=== PATIENT | male | born 2000 | race Hispanic/Latino ===

== ENCOUNTER 2021-02-01 03:06 | Inpatient (IN) | payer OTHER, SELFPAY ==
[2021-02-01] MEDS ORDERED: Ondansetron PF 4 MG/2 ML Vial ONE ×2 (03:20→08:53)
[2021-02-01 03:33] LABS: Hemoglobin 14.1 g/dL (14.0-18.0); Mean Corpuscular Hemoglobin 27.2 pg (27.0-31.0); Mean Corpuscular Volume 80.1 fL (78.0-98.0); Mean Platelet Volume 9.7 fL (7.4-10.4); Platelet Count 242 thou/uL (130-400); RBC Distribution Width 12.1 % (11.5-14.5); Red Blood Cell (RBC) Count 5.19 mill/uL (4.70-6.10); White Blood Cell (WBC) Count 21.5 thou/uL (4.8-10.8)
[2021-02-01] MEDS ORDERED: Boostrix 0.5 ML (Tdap) VIAL ONE (03:45)
[2021-02-01 03:49] LABS: Acetaminophen Less than 6.0 mcg/mL (10.0-30.0); Alcohol Less than 10 mg/dL (Less than 10); Salicylate Less than 8.0 mg/dL (15.0-30.0)
[2021-02-01 03:53] LABS: ALT (SGPT) 121 U/L (8-55); AST (SGOT) 126 U/L (5-34); Albumin 4.1 g/dL (3.5-5.0); Alkaline Phosphatase 99 U/L (40-110); Anion Gap 22 mmol/L (10-20); BUN (Urea Nitrogen) 17 mg/dL (8.9-20.6); Bilirubin, Total 0.4 mg/dL (0.2-1.2); Calc. Creatinine Clearance 0 mL/min (70-130); Calcium 8.8 mg/dL (7.8-10.44); Carbon Dioxide 14 mmol/L (22-29); Chloride 105 mmol/L (98-107); Globulin 3.5 g/dL (2.4-3.5); Glucose 165 mg/dL (70-105); Protein, Total 7.6 g/dL (6.0-8.3); Sodium 137 mmol/L (136-145)
[2021-02-01 03:55] LABS: Lymphocytes 9 % (21-51); MDiff Complete? YES; Monocytes 8 % (0-10); Neutrophil 83 % (42-75); Platelet Morphology Comment Appears Adequate
[2021-02-01] MEDS ORDERED: Morphine 4 MG/ML VIAL ONE (05:14)
[2021-02-01] MEDS ORDERED: Lidocaine 1% (PF) 30 ML VIAL ONE (05:21)
[2021-02-01] MEDS ORDERED: Lorazepam 2 MG/ML VIAL ONE (06:23)
[2021-02-01] MEDS ORDERED: EPINEPHrine 1 MG/ML AMP ONE (07:04)
[2021-02-01] MEDS ORDERED: Bupivacaine PF 0.5% 30 ML VIAL ONE (07:04)
[2021-02-01] MEDS ORDERED: Thrombin 5000 UNITS/5 ML VIAL ONE (07:04)
[2021-02-01] MEDS ORDERED: Fentanyl 250 MCG/5 ML VIAL ONE (07:24)
[2021-02-01] MEDS ORDERED: Fentanyl 100 MCG/2 ML VIAL ONE ×2 (08:07→13:04)
[2021-02-01 08:29] LABS: SARS-CoV-2 NAA Rapid Test Not Detected (NotDetected)
[2021-02-01] MEDS ORDERED: Glycopyrrolate 0.2 MG/ML 5 ML SYRINGE ONE (08:53)
[2021-02-01] MEDS ORDERED: ePHEDrine Sulfate 50 MG/10 ML VIAL ONE (08:53)
[2021-02-01] MEDS ORDERED: Succinylcholine 200 MG/10 ml SYRINGE FS ONE (08:53)
[2021-02-01] MEDS ORDERED: Lidocaine 1% PF 5 ML VIAL ONE (08:53)
[2021-02-01] MEDS ORDERED: Rocuronium Bromide 10 MG/ML (10ML VIAL) ONE (08:53)
[2021-02-01] MEDS ORDERED: PROPOFOL 200 MG/20 ML VIAL ONE (08:53)
[2021-02-01] MEDS ORDERED: PHENYLEPHRINE-NS 100 MCG/ML 10 ML SYRINGE ONE ×2 (08:53→10:42)
[2021-02-01] MEDS ORDERED: Dexamethasone 20 MG/5 ML VIAL ONE (08:53)
[2021-02-01] MEDS ORDERED: Esmolol 100 MG/10 ML VIAL ONE (08:53)
[2021-02-01] MEDS ORDERED: Ondansetron HCl/PF 4 MG/2 ML Vial IVP PRN (11:12)
[2021-02-01] MEDS ORDERED: Promethazine HCl 25 MG/ML VIAL IM PRN (11:12)
[2021-02-01] MEDS ORDERED: Meperidine HCl/PF 25 MG/ML VIAL SLOW IVP PRN (11:12)
[2021-02-01] MEDS ORDERED: Promethazine HCl 25 MG/ML VIAL SLOW IVP PRN (11:12)
[2021-02-01] MEDS ORDERED: SUGAMMADEX SODIUM 200 MG/2 ML VIAL ONE (12:30)
[2021-02-01] MEDS ORDERED: HYDROcodone/Acetaminophen 10/325 mg Tablet PO PRN ×2 (12:42)
[2021-02-01] MEDS ORDERED: Ondansetron PF 4 MG/2 ML Vial IVP PRN ×2 (12:42→12:47)
[2021-02-01] MEDS ORDERED: Morphine 2 MG/ML VIAL SLOW IVP PRN ×2 (12:42→12:47)
[2021-02-01] MEDS ORDERED: hydrALAZINE 20 MG/ML VIAL SLOW IVP PRN (12:47)
[2021-02-01] MEDS ORDERED: Dextrose 50% Abboject 50 ML SYRINGE SLOW IVP PRN (12:47)
[2021-02-01] MEDS ORDERED: Ondansetron ODT 4 MG TAB PO PRN (12:47)
[2021-02-01] MEDS ORDERED: Cyclobenzaprine 10 MG TAB PO PRN (12:47)
[2021-02-01] MEDS ORDERED: Dextrose 5% in Water 1,000 ML IV PRN (12:47)
[2021-02-01] MEDS ORDERED: Morphine 4 MG/ML VIAL SLOW IVP PRN (12:47)
[2021-02-01] MEDS ORDERED: Famotidine 20 MG TAB PO SCH (13:30)
[2021-02-01] MEDS ORDERED: Metoprolol Tartrate 5 MG/5 ML VIAL ONE (13:30)
[2021-02-01] MEDS ORDERED: Polyethylene Glycol 3350 17 GM Packet PO SCH (13:30)
[2021-02-01] MEDS ORDERED: Iopamidol 370 76% 100 ML VIAL ONE (13:34)
[2021-02-01] MEDS ORDERED: Senokot S 8.6-50 MG TAB PO SCH (13:45)
[2021-02-01] MEDS: Acetaminophen 500 MG TAB PO SCH ×2 (15:13→21:47)
[2021-02-01] MEDS: Sodium Chloride 0.9% 1,000 ML IV SCH (15:14)
[2021-02-01] MEDS: CEFAZOLIN 2 GM in Premix Bag 1 BAG IVPB SCH (17:20)
[2021-02-01 17:30] VITALS: BMI 26.4
[2021-02-01] MEDS ORDERED: traMADol HCl 50 MG TAB PO SCH (18:00)
[2021-02-01] MEDS ORDERED: Sodium Chloride 0.9% 1,000 ML IV SCH (18:00)
[2021-02-01] MEDS: Gabapentin 300 MG CAP PO SCH (18:48)
[2021-02-01] MEDS: Famotidine 20 MG TAB PO SCH (21:47)
[2021-02-01] MEDS: Senokot S 8.6-50 MG TAB PO SCH (21:49)
[2021-02-02] MEDS: Gabapentin 300 MG CAP PO SCH (01:05)
[2021-02-02] MEDS: Acetaminophen 500 MG TAB PO SCH ×4 (01:06→21:05)
[2021-02-02] MEDS: traMADol HCl 50 MG TAB PO PRN ×3 (01:07→18:51)
[2021-02-02] MEDS: diphenhydrAMINE 50 MG/ML VIAL IVP PRN (01:10)
[2021-02-02] MEDS: CEFAZOLIN 2 GM in Premix Bag 1 BAG IVPB SCH ×3 (01:10→16:06)
[2021-02-02] MEDS: Sodium Chloride 0.9% 1,000 ML IV SCH ×3 (01:36→15:59)
[2021-02-02 06:13] LABS: Anion Gap 12 mmol/L (10-20); BUN (Urea Nitrogen) 12 mg/dL (8.9-20.6); CK (CPK) 829 U/L (30-200); Calc. Creatinine Clearance 149 mL/min (70-130); Calcium 7.9 mg/dL (7.8-10.44); Carbon Dioxide 22 mmol/L (22-29); Chloride 105 mmol/L (98-107); Glucose 135 mg/dL (70-105); Magnesium 1.5 mg/dL (1.6-2.6); Phosphorus 2.8 mg/dL (2.3-4.7); Potassium 3.8 mmol/L (3.5-5.1); Sodium 135 mmol/L (136-145)
[2021-02-02 07:26] LABS: #Lymphocytes 1.3 thou/uL (1.20-3.40); #Monocytes 1.1 thou/uL (0.11-0.59); #Neutrophils 5.8 thou/uL (1.40-6.50); %Basophils 0.1 % (0.0-1.0); %Eosinophils 0.3 % (0.0-10.0); %Lymphocytes 15.6 % (21.0-51.0); Mean Corpuscular HGB CONC 35.1 g/dL (32.0-36.0); Mean Corpuscular Hemoglobin 28.9 pg (27.0-31.0); Mean Corpuscular Volume 82.4 fL (78.0-98.0); Mean Platelet Volume 8.9 fL (7.4-10.4); Platelet Count 182 thou/uL (130-400); Red Blood Cell (RBC) Count 3.12 mill/uL (4.70-6.10); White Blood Cell (WBC) Count 8.1 thou/uL (4.8-10.8)
[2021-02-02] MEDS: Senokot S 8.6-50 MG TAB PO SCH ×2 (08:59→21:05)
[2021-02-02] MEDS ORDERED: MAGNESIUM SULFATE IVPB SCH (09:00)
[2021-02-02] MEDS ORDERED: POTASSIUM PHOSPHATE IVPB SCH (09:00)
[2021-02-02] MEDS ORDERED: [UNRECOGNIZED DRUG - OTHER] IVPB SCH (09:00)
[2021-02-02] MEDS: Pregabalin 50 MG CAP PO SCH ×2 (09:01→21:05)
[2021-02-02] MEDS: Enoxaparin Sodium 40 MG/0.4 ML SYRINGE SC SCH (09:01)
[2021-02-02] MEDS: Famotidine 20 MG TAB PO SCH ×2 (09:01→21:05)
[2021-02-02] MEDS: Polyethylene Glycol 3350 17 GM Packet PO SCH (09:02)
[2021-02-03] MEDS: Sodium Chloride 0.9% 1,000 ML IV SCH ×3 (00:55→15:37)
[2021-02-03] MEDS: diphenhydrAMINE 50 MG/ML VIAL IVP PRN (00:56)
[2021-02-03] MEDS: Acetaminophen 500 MG TAB PO SCH ×4 (00:57→19:50)
[2021-02-03] MEDS: CEFAZOLIN 2 GM in Premix Bag 1 BAG IVPB SCH ×4 (00:57→23:13)
[2021-02-03] MEDS: traMADol HCl 50 MG TAB PO PRN ×2 (00:57→19:50)
[2021-02-03 06:04] LABS: #Lymphocytes 1.3 thou/uL (1.20-3.40); #Neutrophils 5.7 thou/uL (1.40-6.50); %Eosinophils 0.1 % (0.0-10.0); %Lymphocytes 15.8 % (21.0-51.0); %Monocytes 12.1 % (0.0-10.0); %Neutrophils 72.1 % (42.0-75.0); Hemoglobin 8.1 g/dL (14.0-18.0); Mean Corpuscular HGB CONC 34.7 g/dL (32.0-36.0); Mean Corpuscular Hemoglobin 28.4 pg (27.0-31.0); Mean Corpuscular Volume 81.9 fL (78.0-98.0); Mean Platelet Volume 8.6 fL (7.4-10.4); Platelet Count 162 thou/uL (130-400); RBC Distribution Width 11.8 % (11.5-14.5); Red Blood Cell (RBC) Count 2.86 mill/uL (4.70-6.10); White Blood Cell (WBC) Count 7.9 thou/uL (4.8-10.8)
[2021-02-03] MEDS: Enoxaparin Sodium 40 MG/0.4 ML SYRINGE SC SCH (09:29)
[2021-02-03] MEDS: Senokot S 8.6-50 MG TAB PO SCH ×2 (09:30→19:49)
[2021-02-03] MEDS: Famotidine 20 MG TAB PO SCH ×2 (09:30→19:50)
[2021-02-03] MEDS: Polyethylene Glycol 3350 17 GM Packet PO SCH (09:30)
[2021-02-03] MEDS: Pregabalin 50 MG CAP PO SCH ×2 (09:30→19:50)
[2021-02-04] MEDS: Acetaminophen 500 MG TAB PO SCH ×4 (00:42→21:54)
[2021-02-04] MEDS: Sodium Chloride 0.9% 1,000 ML IV SCH ×2 (00:52→18:15)
[2021-02-04 07:04] LABS: #Eosinphils 0.1 thou/uL (0.0-0.7); #Lymphocytes 1.7 thou/uL (1.20-3.40); #Monocytes 0.8 thou/uL (0.11-0.59); #Neutrophils 6.2 thou/uL (1.40-6.50); %Basophils 0.5 % (0.0-1.0); %Eosinophils 0.6 % (0.0-10.0); %Lymphocytes 19.8 % (21.0-51.0); %Monocytes 8.7 % (0.0-10.0); %Neutrophils 70.4 % (42.0-75.0); Hemoglobin 8.2 g/dL (14.0-18.0); Mean Corpuscular HGB CONC 34.7 g/dL (32.0-36.0); Mean Corpuscular Hemoglobin 29.1 pg (27.0-31.0); Mean Corpuscular Volume 83.7 fL (78.0-98.0); Mean Platelet Volume 8.4 fL (7.4-10.4); Platelet Count 197 thou/uL (130-400); RBC Distribution Width 11.7 % (11.5-14.5); Red Blood Cell (RBC) Count 2.81 mill/uL (4.70-6.10); White Blood Cell (WBC) Count 8.8 thou/uL (4.8-10.8)
[2021-02-04] MEDS: Ferrous Sulfate 325 MG TAB PO SCH ×2 (09:28→21:52)
[2021-02-04] MEDS: Ascorbic Acid 500 mg Chewable Tablet PO SCH ×2 (09:29→21:53)
[2021-02-04] MEDS: Pregabalin 75 MG CAP PO SCH ×2 (09:29→21:51)
[2021-02-04] MEDS: CEFAZOLIN 2 GM in Premix Bag 1 BAG IVPB SCH ×2 (09:31→15:20)
[2021-02-04] MEDS: Senokot S 8.6-50 MG TAB PO SCH ×2 (09:31→21:51)
[2021-02-04] MEDS: Enoxaparin Sodium 40 MG/0.4 ML SYRINGE SC SCH (09:31)
[2021-02-04] MEDS: Polyethylene Glycol 3350 17 GM Packet PO SCH (09:31)
[2021-02-04] MEDS ORDERED: traMADol HCl 50 MG TAB PO SCH (09:45)
[2021-02-04] MEDS: Cyclobenzaprine 10 MG TAB PO PRN (21:51)
[2021-02-04] MEDS: traMADol HCl 50 MG TAB PO PRN (21:52)
[2021-02-04] MEDS: Tamsulosin HCl 0.4 MG CAP PO SCH (21:53)
[2021-02-05] MEDS: Acetaminophen 500 MG TAB PO SCH ×4 (01:58→20:04)
[2021-02-05] MEDS: traMADol HCl 50 MG TAB PO PRN (04:20)
[2021-02-05] MEDS: Pregabalin 75 MG CAP PO SCH ×2 (08:23→20:05)
[2021-02-05] MEDS: Enoxaparin Sodium 40 MG/0.4 ML SYRINGE SC SCH (08:23)
[2021-02-05] MEDS: Ascorbic Acid 500 mg Chewable Tablet PO SCH ×2 (08:24→20:05)
[2021-02-05] MEDS: Cyclobenzaprine 10 MG TAB PO PRN (08:24)
[2021-02-05] MEDS: Ferrous Sulfate 325 MG TAB PO SCH ×2 (08:24→20:05)
[2021-02-05] MEDS: Polyethylene Glycol 3350 17 GM Packet PO SCH (11:20)
[2021-02-05] MEDS: Senokot S 8.6-50 MG TAB PO SCH ×2 (11:20→20:17)
[2021-02-05] MEDS: Tamsulosin HCl 0.4 MG CAP PO SCH (20:05)
[2021-02-06] MEDS: Acetaminophen 500 MG TAB PO SCH ×4 (02:18→21:00)
[2021-02-06] MEDS: Polyethylene Glycol 3350 17 GM Packet PO SCH (08:53)
[2021-02-06] MEDS: Enoxaparin Sodium 40 MG/0.4 ML SYRINGE SC SCH (08:53)
[2021-02-06] MEDS: Ferrous Sulfate 325 MG TAB PO SCH ×2 (08:53→21:00)
[2021-02-06] MEDS: Pregabalin 75 MG CAP PO SCH ×2 (08:53→20:59)
[2021-02-06] MEDS: Ascorbic Acid 500 mg Chewable Tablet PO SCH ×2 (08:53→21:00)
[2021-02-06] MEDS: Senokot S 8.6-50 MG TAB PO SCH ×2 (08:53→20:58)
[2021-02-06 14:07] LABS: #Eosinphils 0.2 thou/uL (0.0-0.7); #Lymphocytes 1.8 thou/uL (1.20-3.40); #Monocytes 0.9 thou/uL (0.11-0.59); #Neutrophils 5.1 thou/uL (1.40-6.50); %Basophils 0.2 % (0.0-1.0); %Eosinophils 1.9 % (0.0-10.0); %Lymphocytes 22.3 % (21.0-51.0); %Neutrophils 64.6 % (42.0-75.0); Hemoglobin 8.7 g/dL (14.0-18.0); Mean Corpuscular HGB CONC 35.2 g/dL (32.0-36.0); Mean Corpuscular Hemoglobin 29.3 pg (27.0-31.0); Mean Corpuscular Volume 83.3 fL (78.0-98.0); Mean Platelet Volume 7.4 fL (7.4-10.4); Platelet Count 349 thou/uL (130-400); RBC Distribution Width 12.2 % (11.5-14.5); Red Blood Cell (RBC) Count 2.99 mill/uL (4.70-6.10); White Blood Cell (WBC) Count 7.9 thou/uL (4.8-10.8)
[2021-02-06 14:27] LABS: Anion Gap 15 mmol/L (10-20); BUN (Urea Nitrogen) 8 mg/dL (8.9-20.6); Calc. Creatinine Clearance 181 mL/min (70-130); Calcium 9.2 mg/dL (7.8-10.44); Carbon Dioxide 27 mmol/L (22-29); Chloride 97 mmol/L (98-107); Glucose 108 mg/dL (70-105); Magnesium 2.3 mg/dL (1.6-2.6); Phosphorus 4.6 mg/dL (2.3-4.7); Potassium 3.8 mmol/L (3.5-5.1); Sodium 135 mmol/L (136-145)
[2021-02-06] MEDS: Tamsulosin HCl 0.4 MG CAP PO SCH (20:59)
[2021-02-07] MEDS: Cyclobenzaprine 10 MG TAB PO PRN (00:47)
[2021-02-07] MEDS: Acetaminophen 500 MG TAB PO SCH ×4 (01:49→20:39)
[2021-02-07] MEDS: Enoxaparin Sodium 40 MG/0.4 ML SYRINGE SC SCH (08:42)
[2021-02-07] MEDS: Ascorbic Acid 500 mg Chewable Tablet PO SCH ×2 (08:42→20:41)
[2021-02-07] MEDS: Pregabalin 75 MG CAP PO SCH ×2 (08:42→20:41)
[2021-02-07] MEDS: Ferrous Sulfate 325 MG TAB PO SCH ×2 (08:42→20:41)
[2021-02-07] MEDS: Senokot S 8.6-50 MG TAB PO SCH ×2 (08:43→20:40)
[2021-02-07] MEDS: Polyethylene Glycol 3350 17 GM Packet PO SCH (08:43)
[2021-02-07] MEDS: Tamsulosin HCl 0.4 MG CAP PO SCH (20:40)
[2021-02-08] MEDS: Acetaminophen 500 MG TAB PO SCH ×4 (03:30→21:15)
[2021-02-08] MEDS: Polyethylene Glycol 3350 17 GM Packet PO SCH (07:56)
[2021-02-08] MEDS: Senokot S 8.6-50 MG TAB PO SCH ×2 (07:56→21:16)
[2021-02-08] MEDS: Sulfameth/Trimethoprim DS 800-160mg TAB PO SCH ×2 (09:45→21:16)
[2021-02-08] MEDS: Pregabalin 75 MG CAP PO SCH ×2 (09:45→21:16)
[2021-02-08] MEDS: Enoxaparin Sodium 40 MG/0.4 ML SYRINGE SC SCH (09:46)
[2021-02-08] MEDS: Ferrous Sulfate 325 MG TAB PO SCH ×2 (09:46→21:16)
[2021-02-08] MEDS: Ascorbic Acid 500 mg Chewable Tablet PO SCH ×2 (09:46→21:16)
[2021-02-08] MEDS: traMADol HCl 50 MG TAB PO PRN (15:13)
[2021-02-08] MEDS: Tamsulosin HCl 0.4 MG CAP PO SCH (21:16)
[2021-02-09] MEDS: Acetaminophen 500 MG TAB PO SCH ×4 (04:23→19:56)
[2021-02-09] MEDS: Pregabalin 75 MG CAP PO SCH ×2 (09:11→19:56)
[2021-02-09] MEDS: Ascorbic Acid 500 mg Chewable Tablet PO SCH ×2 (09:11→19:56)
[2021-02-09] MEDS: Sulfameth/Trimethoprim DS 800-160mg TAB PO SCH ×2 (09:12→19:57)
[2021-02-09] MEDS: Ferrous Sulfate 325 MG TAB PO SCH ×2 (09:12→19:56)
[2021-02-09] MEDS: Enoxaparin Sodium 40 MG/0.4 ML SYRINGE SC SCH (09:12)
[2021-02-09] MEDS: Polyethylene Glycol 3350 17 GM Packet PO SCH (09:14)
[2021-02-09] MEDS: Senokot S 8.6-50 MG TAB PO SCH ×2 (09:14→19:37)
[2021-02-09] MEDS: Tamsulosin HCl 0.4 MG CAP PO SCH (19:57)
[2021-02-09 20:48] VITALS: BP 118/74; TEMP 98.3
== END 2021-02-09 22:13 | disposition home or self-care (01) | DRG 29 ==
LOC: ERS 03:06 → EDBD 03:06 → SDC 07:48 → EEVIPCON 07:48 → SURG B 13:53
PROVIDERS: ADMIT Surgery; ATTEND Surgery
PROC: 0RG6071 Fusion of Thoracic Vertebral Joint with Autologous Tissue Substitute, Posterior Approach, Posterior Column, Open Approach (ICD-10-PCS; principal; 2021-02-01)
PROC: 0RGA071 Fusion of Thoracolumbar Vertebral Joint with Autologous Tissue Substitute, Posterior Approach, Posterior Column, Open Approach (ICD-10-PCS; 2021-02-01)
PROC: 0SG0071 Fusion of Lumbar Vertebral Joint with Autologous Tissue Substitute, Posterior Approach, Posterior Column, Open Approach (ICD-10-PCS; 2021-02-01)
PROC: 01N80ZZ Release Thoracic Nerve, Open Approach (ICD-10-PCS; 2021-02-01)
PROC: 01NB0ZZ Release Lumbar Nerve, Open Approach (ICD-10-PCS; 2021-02-01)
PROC: 0HQEXZZ Repair Left Lower Arm Skin, External Approach (ICD-10-PCS; 2021-02-01)
DX: S24.154A Other incomplete lesion at T11-T12 level of thoracic spinal cord, initial encounter (principal); S32.019A Unspecified fracture of first lumbar vertebra, initial encounter for closed fracture; S22.089A Unspecified fracture of T11-T12 vertebra, initial encounter for closed fracture; Z20.822 Contact with and (suspected) exposure to COVID-19; Z23 Encounter for immunization; S61.512A Laceration without foreign body of left wrist, initial encounter; F07.81 Postconcussional syndrome; S40.022A Contusion of left upper arm, initial encounter; S40.021A Contusion of right upper arm, initial encounter; R19.00 Intra-abdominal and pelvic swelling, mass and lump, unspecified site; E83.42 Hypomagnesemia; D64.9 Anemia, unspecified; R20.3 Hyperesthesia; R33.8 Other retention of urine; V97.89XA Other air transport accidents, not elsewhere classified, initial encounter
CPT/HCPCS: 12002; 36415; 70450; 71045; 71260; 72125; 72128; 72131; 72170; 74177; 76000; 80048; 80053; 80307; 82550; 83735; 84100; 85025; 90471; 90715; 96374; 96375; C1713; C1768; G0390; J0171; J0690; J1100; J1200; J1650; J2001; J2060; J2270; J2405; J2704; J3010; J3475; J7050; Q9967; S0020; U0002; U0005